=== PATIENT | female | born 1945 ===

== ENCOUNTER 2022-12-12 09:12 | Emergency (ER) | payer MEDICARE ==
[~2022-12-12] VITALS: Ht 165.1 cm; Wt 68.0 kg
[~2022-12-12 09:12] MED LIST: HYDR-4353 PO
[2022-12-12 09:30] VITALS: BP 151/98
[2022-12-12] MEDS ORDERED: AZIT-31 PO ×2 (11:00→11:37)
[2022-12-12] MEDS ORDERED: GUAI400T92 PO ×2 (11:00→11:37)
[2022-12-12] MEDS ORDERED: ALBU8HFA PO (11:37)
== END 2022-12-12 11:52 | disposition home or self-care (01) ==
LOC: ER 09:13
DX: J20.9 Acute bronchitis, unspecified (principal); Z88.0 Allergy status to penicillin; Z88.1 Allergy status to other antibiotic agents; Z79.1 Long term (current) use of non-steroidal anti-inflammatories (NSAID); Z79.2 Long term (current) use of antibiotics
CPT/HCPCS: 71046; 99283